=== PATIENT | female | born 2000 | race Hispanic/Latino ===

== ENCOUNTER 2020-04-19 12:20 | Inpatient (IN) | payer OTHER, SELFPAY ==
[~2020-04-19 12:20] MED LIST: Iopamidol-370 76% 500 ML 1 ML ONE
[2020-04-19] MEDS ORDERED: Promethazine HCl 25 MG/ML VIAL ONE (12:46)
[2020-04-19] MEDS ORDERED: Ketorolac Tromethamine 30 MG/ML VIAL ONE (12:46)
[2020-04-19 13:13] LABS: ALT (SGPT) 22 U/L (8-55); AST (SGOT) 17 U/L (5-34); Albumin 4.7 g/dL (3.5-5.0); Alkaline Phosphatase 66 U/L (40-110); Anion Gap 19 mmol/L (10-20); BUN (Urea Nitrogen) 14 mg/dL (7.0-18.7); Bilirubin, Total 0.9 mg/dL (0.2-1.2); CK (CPK) 62 U/L (29-168); Calc. Creatinine Clearance 0 mL/min (70-130); Calcium 9.8 mg/dL (7.8-10.44); Carbon Dioxide 25 mmol/L (22-29); Chloride 87 mmol/L (98-107); Estimated GFR-MDRD 60; Globulin 2.8 g/dL (2.4-3.5); Glucose 164 mg/dL (70-105); Lipase 61 U/L (8-78); Protein, Total 7.5 g/dL (6.0-8.3); Sodium 128 mmol/L (136-145)
[2020-04-19 13:16] LABS: Potassium 2.5 mmol/L (3.5-5.1)
[2020-04-19 13:25] LABS: BHCG - Serum Negative (NEGATIVE); Pregs Control Background? CLEAR/WHITE (CLR/WHITE); Pregs Control Bar Appear? YES (CONTROL BAR)
[2020-04-19 13:27] LABS: Bilirubin Negative (Negative); Blood, Urine 1+ (Negative); Clarity Turbid (Clear); Glucose, Urine (Dipstick) Normal (Negative); Ketone, Urine Trace mg/dL (Negative); Leukocyte 250 Leu/uL (Negative); Nitrite Negative (Negative); Protein, Urine (Dipstick) 100 mg/dL (Neg-Trace); Specific Gravity, Urine 1.033 (1.002-1.036); pH, Urine 6.5 (5.0-9.0)
[2020-04-19 13:30] LABS: #Basophils 0.1 thou/uL (0.0-0.2); #Lymphocytes 2.1 thou/uL (1.20-3.40); #Neutrophils 12.1 thou/uL (1.40-6.50); %Basophils 0.6 % (0.0-1.0); %Eosinophils 0.2 % (0.0-10.0); %Lymphocytes 13.4 % (21.0-51.0); %Monocytes 6.6 % (0.0-10.0); %Neutrophils 79.2 % (42.0-75.0); Hemoglobin 17.3 g/dL (12.0-16.0); Mean Corpuscular HGB CONC 34.7 g/dL (32.0-36.0); Mean Corpuscular Hemoglobin 32.4 pg (27.0-31.0); Mean Corpuscular Volume 93.2 fL (78.0-98.0); Mean Platelet Volume 7.1 fL (7.4-10.4); Platelet Count 414 thou/uL (130-400); RBC Distribution Width 11.3 % (11.5-14.5); Red Blood Cell (RBC) Count 5.33 mill/uL (4.20-5.40); White Blood Cell (WBC) Count 15.3 thou/uL (4.8-10.8)
[2020-04-19 13:34] LABS: Bacteria/HPF 1+ HPF (None Seen)
[2020-04-19] MEDS ORDERED: Potassium Chloride 20 MEQ TAB ONE (13:40)
[2020-04-19] MEDS ORDERED: cefTRIAXone\\ROCEPHIN 2 GM VIAL ONE (13:50)
--- NOTE | 2020-04-19 14:34 | CT ---
EXAM: CT ABDOMEN AND PELVIS HISTORY: Abdominal pain and vomiting. COMPARISON: None. Procedure: Multiple contiguous axial images were obtained and a CT of the abdomen and pelvis with IV contrast. C oronal reformats were performed. FINDINGS: Lower Chest: within normal limits. Vessels: Normal caliber aorta. No periaortic fat stranding Heart: Normal heart size. Abdomen: Portal vein:Patent Gallbladder: No calcified gallstones. Normal caliber wall. Liver: within normal limits. Pancreas: within normal limits. Spleen: within normal limits. Adrenals: within normal limits. Kidneys: Symmetric enhancement. No obstructive uropathy. Peritoneum: Limited evaluation due to decreased visceral fat. No mesenteric mass, free air, free flui d or lymphadenopathy. Bowel: Limited evaluation due to the lack of oral contrast administration. No evidence of bowel obstr uction. Ileocecal junction is unremarkable. Normal caliber appendix. Scattered fecal material in a nondistended, nondilated colon. Mesentery and Retroperitoneum: No enlarged mesenteric or retroperitoneal lymph nodes. Abdominal Wall: within normal limits. Pelvis: Reproductive Organs: No acute abnormality. Bilateral ovarian follicles are suspected. Intrauterine de vice is noted. Pelvis: No mass, lymphadenopathy, free air or free fluid. Bladder: within normal limits. Bones: within normal limits. IMPRESSION: No evidence of acute intraabdominal\pelvic abnormality.
[2020-04-19 15:55] LABS: Lactic Acid 1.1 mmol/L (0.5-2.2)
[2020-04-19] MEDS ORDERED: Acetaminophen 325 MG TAB PO PRN ×2 (16:55→16:59)
[2020-04-19] MEDS ORDERED: Promethazine HCl 25 MG/ML VIAL SLOW IVP PRN (16:55)
[2020-04-19] MEDS ORDERED: Sodium Chloride 0.9% 1,000 ML IV SCH (17:00)
[2020-04-19] MEDS ORDERED: Ondansetron PF 4 MG/2 ML Vial IVP PRN (17:02)
[2020-04-19 17:48] VITALS: BMI 17.2
[2020-04-19 17:52] LABS: Albumin 4.2 g/dL (3.5-5.0)
[2020-04-19 17:53] LABS: Chloride 99 mmol/L (98-107); Sodium 134 mmol/L (136-145)
[2020-04-19 17:54] LABS: Glucose 96 mg/dL (70-105)
[2020-04-19 17:55] LABS: Globulin 2.3 g/dL (2.4-3.5); Protein, Total 6.5 g/dL (6.0-8.3)
[2020-04-19 17:56] LABS: Anion Gap 12 mmol/L (10-20); Bilirubin, Total 0.6 mg/dL (0.2-1.2); Carbon Dioxide 26 mmol/L (22-29)
[2020-04-19 17:57] LABS: Alkaline Phosphatase 61 U/L (40-110)
[2020-04-19 17:58] LABS: Calc. Creatinine Clearance 76 mL/min (70-130); Estimated GFR-MDRD 82
[2020-04-19 17:59] LABS: AST (SGOT) 25 U/L (5-34); BUN (Urea Nitrogen) 8 mg/dL (7.0-18.7)
[2020-04-19 18:00] LABS: ALT (SGPT) 21 U/L (8-55)
[2020-04-19 18:02] LABS: Calcium 8.2 mg/dL (7.8-10.44); Potassium 2.8 mmol/L (3.5-5.1)
--- NOTE | 2020-04-19 18:10 | PDOC.EVN ---
Event Note - Event Note Event Note: Ms. Mendez was seen today and discussed with Susan Dixon NP. She presented to the ER with complaints of nausea and vomiting for a few days, as well as abdominal pain. She was found to have a UTI with sepsis. On exam her lungs are clear, and heart sounds are normal. She had some diffuse abdominal tenderness but no flank or CVA tenderness. Lab results were reviewed. Agree with the plan outlined by Ms. Destiny NP. She had some screening questions which were concerning for possible COVID exposure. Will screen her, and place her in isolation pending the results.
[2020-04-19] MEDS ORDERED: Potassium Chloride 40 MEQ in Premix Bag 1 BAG IVPB SCH (18:15)
[2020-04-19] MEDS ORDERED: Potassium Chloride 40 MEQ in Sodium Chloride 0.9% 250 ML 250 ML IVPB SCH (18:15)
[2020-04-19] MEDS: Sodium Chloride 0.9% 1,000 ML IV SCH ×2 (18:21→23:46)
[2020-04-19 19:23] LABS: Amphetamine Not Detected (NotDetected); Barbiturates Screen Not Detected (NotDetected); Benzodiazepine Screen Not Detected (NotDetected); Cocaine Metabolite Screen Not Detected (NotDetected); Medtox Control Line Valid? VALID (VALID); Medtox Reader # READER 4; Methadone Not Detected (NotDetected); Methamphetamine Not Detected (NotDetected); Opiate Screen Not Detected (NotDetected); Oxycodone Screen Not Detected (NotDetected); Phencyclidine (PCP) Not Detected (NotDetected); THC/Cannabinoid Screen Detected (NotDetected); Tricyclic Screen Not Detected (NotDetected)
--- NOTE | 2020-04-19 20:53 | HP ---
PCP: Out of town CHIEF COMPLAINT: "I can't stop vomiting." HISTORY OF PRESENT ILLNESS: The patient is a 20-year-old female with no significant past medical history who presents to the ER for vomiting. She states that she has been vomiting for the past 1-1/2 weeks. This is her third ER visit since this has started last week. She is vomiting both food and fluids anytime she tries to eat or drink. Has not had a bowel movement in this time period because she is unable to keep any food in. Has had subjective fever, but no temperature has been taken. She has not tried any medications at home. She is still making urine at this time. Denies any back pain. Denies any urinary symptoms such as frequency, hesitancy, or burning. No discharge and no hematuria. She is positive for abdominal pain, it is lower, describes as a hunger pain. She states that she has had vomiting like this in the past but never for this long. She states it would last approximately 3 days and then resolve on its own without intervention or medications. Today in the ER they completed blood work, urinalysis, and abdominal and pelvic CT. PAST MEDICAL HISTORY: No past medical history. PAST SURGICAL HISTORY: IUD placement. ALLERGIES: NO KNOWN DRUG ALLERGIES. MEDICATIONS: IUD placement. SOCIAL HISTORY: She is visiting from out of state with her boyfriend. She denies any alcohol, drug, or tobacco use. FAMILY HISTORY: Mother and grandmother have diabetes. REVIEW OF SYSTEMS: All other review of systems negative unless noted in the HPI. PHYSICAL EXAMINATION: VITAL SIGNS: Blood pressure 126/98, pulse 110, respiratory rate 20, temperature 98.1, O2 saturation 99% on room air. GENERAL: The patient is afebrile, appears to be in moderate pain and distress. Alert and oriented. HEENT: Head, atraumatic and normocephalic. Eyes, extraocular muscles are intact. PERRLA. ENT, mucous membranes are dry. NECK: Trachea midline. No lymphadenopathy. RESPIRATORY: Clear to auscultation bilaterally. No wheezes, no rhonchi, no rales. CARDIOVASCULAR: Tachycardic at times, regular rate and rhythm. No murmurs, no gallops, no rubs. ABDOMEN: Diffusely tender especially to the left lower quadrant and suprapubic area. Hypoactive bowel sounds. No guarding. No masses. No distention. EXTREMITIES: No cyanosis, no clubbing. No edema. SKIN: Warm, dry, and pale. PSYCH: Normal affect, normal behavior. LABORATORY DATA: White blood cells 15.3, hemoglobin 17.2, hematocrit 49.7, platelets 414. Sodium 128, potassium 2.5, chloride 87, creatinine 1.14, GFR 60, glucose 164, lactic acid 4.8, calcium 9.8, magnesium 2.2. Negative test. Turbid urine, 100 proteins, trace ketones, 1+ blood, 250 leukocyte esterase, urine white blood cells 11 to 20, urine bacteria 1+. CT of the abdomen and pelvis shows no evidence of acute intraabdominal or pelvic abnormality. IMPRESSION AND PLAN: 1. Sepsis from urinary tract infection. Continue IV fluids and antibiotics at this time. Repeat lactic acid. Monitor vital signs. 2. Hyponatremia and hypokalemia: Most likely due to her extensive vomiting. Hopefully, we will able to correct with IV fluids. She has received a dose of oral potassium and has not vomited since that time. We will repeat a BMP in a couple of hours to see if improvement is noted. She is to be monitored on telemetry. 3. Acute kidney injury. Continue IV fluids. Monitor BMP this afternoon and also in the morning to hopefully see improvement with the continuous IVF. 5. Nausea and vomiting. We will treat with p.r.n. antiemetics, will be on a clear liquid diet as tolerated. 6. Deep venous thrombosis prophylaxis with Lovenox. Gastrointestinal prophylaxis with Protonix IV. The patient wished to be full code. Her surrogate decision maker is her boyfriend, Joshua Garcia [phone]. The patient has been discussed with Dr. Nickerson. Job ID: [id number] [facility]
[2020-04-20 05:11] LABS: Anion Gap 7 mmol/L (10-20); BUN (Urea Nitrogen) 5 mg/dL (7.0-18.7); Calc. Creatinine Clearance 91 mL/min (70-130); Calcium 8.3 mg/dL (7.8-10.44); Carbon Dioxide 27 mmol/L (22-29); Chloride 106 mmol/L (98-107); Estimated GFR-MDRD Greater than 90; Glucose 80 mg/dL (70-105); Potassium 3.2 mmol/L (3.5-5.1); Sodium 137 mmol/L (136-145)
[2020-04-20 05:17] LABS: #Basophils 0.1 thou/uL (0.0-0.2); #Eosinphils 0.1 thou/uL (0.0-0.7); #Lymphocytes 3.9 thou/uL (1.20-3.40); #Monocytes 0.9 thou/uL (0.11-0.59); #Neutrophils 4.8 thou/uL (1.40-6.50); %Basophils 0.8 % (0.0-1.0); %Monocytes 9.1 % (0.0-10.0); %Neutrophils 49.1 % (42.0-75.0); Hemoglobin 13.4 g/dL (12.0-16.0); Mean Corpuscular HGB CONC 35.2 g/dL (32.0-36.0); Mean Corpuscular Hemoglobin 33.3 pg (27.0-31.0); Mean Corpuscular Volume 94.6 fL (78.0-98.0); Mean Platelet Volume 7.1 fL (7.4-10.4); Platelet Count 320 thou/uL (130-400); RBC Distribution Width 11.4 % (11.5-14.5); Red Blood Cell (RBC) Count 4.02 mill/uL (4.20-5.40); White Blood Cell (WBC) Count 9.7 thou/uL (4.8-10.8)
[2020-04-20] MEDS ORDERED: Potassium Chloride 40 MEQ in Premix Bag 1 BAG IVPB SCH (07:45)
[2020-04-20] MEDS: Sodium Chloride 0.9% 1,000 ML IV SCH (08:40)
[2020-04-20] MEDS: Potassium Chloride 20 MEQ in Premix Bag 1 BAG IVPB SCH ×2 (08:41→11:25)
[2020-04-20] MEDS ORDERED: Pantoprazole 40 MG VIAL IVP SCH (09:00)
[2020-04-20] MEDS ORDERED: Enoxaparin Sodium 40 MG/0.4 ML SYRINGE SC SCH (09:00)
[2020-04-20 13:13] LABS: SARS-CoV-2 MS2 Positive; SARS-CoV-2 N Gene Negative; SARS-CoV-2 S Gene Negative; SARS-CoV-2 orf1ab Negative
[2020-04-20] MEDS ORDERED: cefTRIAXone\\ROCEPHIN 2 GM in Sodium Chloride 0.9% 100 ML IVPB SCH (14:00)
[2020-04-20 14:32] LABS: Potassium 3.3 mmol/L (3.5-5.1)
--- NOTE | 2020-04-20 15:28 | PDOC.HOSPP ---
- Subjective Encounter Date: 04/20/20 Encounter Time: 15:26 Subjective: Ms. Mendez was seen today in follow-up of UTI with sepsis. She says she feel much better today. She does not have any new complaints. - Objective Vital Signs & Weight: Vital Signs (12 hours) Temp Pulse Resp BP BP Pulse Ox 04/20/20 12:20 98.8 F 98 18 115/88 100 04/20/20 08:40 98.6 F 80 16 106/67 100 04/20/20 04:00 99.0 F 70 16 97/64 97 Weight Admit Weight 103 lb 11.2 oz Weight 103 lb 11.2 oz I&O: 04/19/20 04/20/20 04/21/20 06:59 06:59 06:59 Intake Total 2012 Output Total 300 Balance 1712 Result Diagrams: 04/20/20 04:16 04/20/20 14:06 Hospitalist ROS - Medication Medications: Active Medications Generic Name Dose Route Start Last Admin Trade Name Freq PRN Reason Stop Dose Admin Enoxaparin Sodium 40 mg 04/20/20 09:00 04/20/20 09:06 Lovenox SC Not Given 0900 KAITLYNN Sodium Chloride 1,000 mls @ 126 mls/hr 04/19/20 16:59 04/20/20 08:40 Normal Saline 0.9% IV 1,000 mls .[id number] KAITLYNN Administration Ondansetron HCl 4 mg 04/19/20 17:02 04/19/20 18:23 Zofran IVP 4 mg Q6H PRN Administration Nausea/Vomiting Pantoprazole Sodium 40 mg 04/20/20 09:00 04/20/20 08:41 Protonix IVP 40 mg DAILY KAITLYNN Administration Sodium Chloride 10 ml 04/20/20 09:00 04/20/20 11:43 Flush - Normal Saline IVF Not Given Q12HR KAITLYNN - Exam Eye: PERRL, anicteric sclera Heart: RRR, no murmur, no gallops, no rubs, normal peripheral pulses Respiratory: CTAB, no wheezes, no rales, no ronchi, normal chest expansion, no tachypnea Gastrointestinal: soft, non-tender, non-distended, normal bowel sounds, no palpable masses, no hepatomegaly Extremities: no cyanosis, no edema Hosp A/P (1) UTI (urinary tract infection) Status: Acute (2) Sepsis Code(s): A41.9 - SEPSIS, UNSPECIFIED ORGANISM Status: Acute - Plan * UTI- continue Rocephin she appears to be improving with this * Still awaiting urine culture results * Home after the results become available.
[2020-04-20 16:13] VITALS: BP 111/72; TEMP 98.2
--- NOTE | 2020-04-20 18:51 | DIS ---
DATE OF ADMISSION: 04/19/2020 DATE OF DISCHARGE: 04/20/2020 DISCHARGE DISPOSITION: Left AMA. DISCHARGE DIAGNOSES: 1. Urinary tract infection. 2. Sepsis. DISCHARGE MEDICATIONS: The patient was given a prescription for Omnicef 300 mg twice a day for 14 days. We are assuming she is going to continue Zyrtec 10 mg daily and Flonase. CODE STATUS: Full code. ALLERGIES: NO KNOWN DRUG ALLERGIES. HOSPITAL COURSE: Ms. Mendez is a pleasant 20-year-old female, who presented to the emergency room complaining of nausea and vomiting. She was found to have a urinary tract infection. She also met sepsis criteria. With fever, elevated white count, and elevated lactic acid, she was started on IV antibiotics with Rocephin and we were awaiting urine culture results. She improved dramatically over the course of the 24 hours and she stated that she had to pack and go to leave because she was leaving to go, moved to [facility], and despite being informed that it was dangerous for her to leave without getting the culture results. She felt she would go ahead and take the risk. In order to mitigate some of the risks, we did send her home with a prescription for Omnicef given that she did improve with Rocephin and if she were to have severe fever, return of her symptoms, nausea, vomiting, abdominal pain, etc., then she should return back to the ER. Job ID: [id number]
== END 2020-04-20 16:38 | disposition left against medical advice (07) | DRG 872 ==
LOC: ERS 12:20 → 2NO 14:53 → 2SW 18:59
PROVIDERS: ADMIT Internal Medicine; ATTEND Internal Medicine
DX: A41.9 Sepsis, unspecified organism (principal); N39.0 Urinary tract infection, site not specified; N17.9 Acute kidney failure, unspecified; E87.1 Hypo-osmolality and hyponatremia; E87.6 Hypokalemia; R11.2 Nausea with vomiting, unspecified; J30.2 Other seasonal allergic rhinitis
CPT/HCPCS: 36415; 74177; 80048; 80053; 80306; 81003; 81015; 82550; 83605; 83690; 83735; 84703; 85025; 87040; 87086; 87635; 93005; 94760; 96361; 96365; 96367; 96372; 96375; C9113; J0500; J0696; J1885; J2405; J2550; J3480; J3490; J7050; Q9967; U0003